=== PATIENT | female | born 1990 | race Caucasian/White ===

== ENCOUNTER 2017-02-18 12:07 | Emergency (ER) | payer OTHER ==
--- NOTE | 2017-02-18 13:50 | UC ---
Abdominal Pain Female HPI - HPI Summary HPI Summary: gradual onset R flank pain constant, worse with movement, starting about 4 days ago. Has been vomiting more than normal and feeling sick to her stomach. No known fevers. Thinks she's urinating less than normal. - History of Current Complaint Chief Complaint: UCGU Stated Complaint: PAIN ON SIDE Time Seen by Provider: 02/18/17 13:31 Hx Obtained From: Patient Hx Last Menstrual Period: 02/15/17 ?: No Onset/Duration: Gradual Onset, Lasting Days Timing: Constant Severity Initially: Mild Severity Currently: Moderate Radiates: No Radiates to: Flank Character: Cramping, Dull Aggravating Factor(s): Movement, Deep Breaths Alleviating Factor(s): Position Associated Signs and Symptoms: Positive: Vaginal Bleeding - menses, Nausea, Vomiting. 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 - Surgical History Surgical History: Yes Surgery Procedure, Year, and Place: gastric bypass - Family History Known Family History: Positive: Hypertension - Social History Lives: With Family Alcohol Use: None Substance Use Type: None Smoking Status (MU): Never Smoked Tobacco - Immunization History Most Recent Influenza Vaccination: 06/17/15 Most Recent Tetanus Shot: 06/17/15 Most Recent Pneumonia Vaccination: none Review of Systems Constitutional: Negative Skin: Negative Eyes: Negative ENT: Negative Respiratory: Negative Cardiovascular: Negative Gastrointestinal: Abdominal Pain, Vomiting Genitourinary: Negative Motor: Negative Neurovascular: Negative Musculoskeletal: Negative Neurological: Negative Psychological: Negative All Other Systems Reviewed And Are Negative: Yes Physical Exam Triage Information Reviewed: Yes Appearance: Well-Nourished, Obese Vital Signs: Initial Vital Signs Temp 98 F 02/18/17 12:14 Pulse 85 02/18/17 12:14 Resp 16 02/18/17 12:14 Pulse Ox 100 02/18/17 12:14 Vital Signs Reviewed: Yes Eye Exam: Normal Eyes: Positive: Conjunctiva Clear ENT Exam: Normal ENT: Positive: Normal ENT inspection, Hearing grossly normal, Pharynx normal, TMs normal Dental Exam: Normal Neck exam: Normal Neck: Positive: Supple, Nontender, No Lymphadenopathy Respiratory Exam: Normal Respiratory: Positive: Chest non-tender, Lungs clear, Normal breath sounds, No respiratory distress, No accessory muscle use Cardiovascular Exam: Normal Cardiovascular: Positive: RRR, No Murmur Abdomen Description: Positive: Soft, CVA Tenderness (R) - significant Musculoskeletal Exam: Normal Neurological Exam: Normal Neurological: Positive: Alert, Muscle Tone Normal Psychological Exam: Normal Skin Exam: Normal Abd Pain Female Course/Dx - Differential Dx/Diagnosis Provider Diagnoses: pyelonephritis Discharge - Discharge Plan Condition: Stable Disposition: HOME Prescriptions: Ciprofloxacin HCl [Cipro 500 MG TAB] 500 mg PO BID #14 tab Patient Education Materials: Kidney Infection (ED) Referrals: Ulisses DAWSON,Khang Pack [Primary Care Provider] - 3 Days Additional Instructions: Drink plenty of water. If you have severe or worsening symptoms, please go to the emergency department.
[2017-02-19 14:05] LABS: Hematocrit 39 % (35-47); Hemoglobin 12.2 g/dl (12.0-16.0); Mean Corpuscular HGB Conc 32 g/dl (31-36); Mean Corpuscular Hemoglobin 26 pg (27-31); Mean Corpuscular Volume 83 fL (80-97); Mean Platelet Volume 10 um3 (7.4-10.4); Red Blood Count 4.66 10^6/ul (4.0-5.4); Red Cell Distribution Width 18 % (10.5-15)
[2017-02-19 14:17] LABS: Albumin 3.9 g/dL (3.2-5.2); EGFR African American 86.2 (>60); Globulin 2.9 g/dL (2-4); Potassium 4.2 mmol/L (3.5-5.0); Total Bilirubin 0.4 mg/dL (0.2-1.0); Total Protein 6.8 g/dL (6.4-8.9)
--- NOTE | 2017-02-19 16:22 | ED ---
Progress - Progress Note Progress Note: LABS LOOK GOOD. SEE HOW PATIENT IS DOING. Course/Dx - Diagnoses Provider Diagnoses: Back pain
== END 2017-02-18 14:15 | disposition home or self-care (01) ==
LOC: UCEAST 12:07 → MERGE 12:07 → UCEAST 14:15
DX: N12 Tubulo-interstitial nephritis, not specified as acute or chronic (principal)
CPT/HCPCS: 36415; 80053; 81003; 85025; 87086; 99202; G0463

== ENCOUNTER 2017-10-22 18:24 | Emergency (ER) | payer OTHER ==
[2017-10-22 19:16] VITALS: BP 154/101
[2017-10-22] MEDS ORDERED: Amoxicillin/Clavulanate TAB* 875 MG PO ONE ×2 (20:01)
[2017-10-22] MEDS ORDERED: Amoxicillin/Clavulanate TAB* 875 MG ONE (20:02)
--- NOTE | 2017-10-22 20:08 | UC ---
Dental HPI - HPI Summary HPI Summary: 27 yo WF c/o tooth pain in right last molar - partially and broken off with cavity worsening pain that radiated to right spiritism x last few days - History of Current Complaint Chief Complaint: UCDentalProblem Stated Complaint: TOOTH PAIN Time Seen by Provider: 10/22/17 19:51 Hx Obtained From: Patient Hx Last Menstrual Period: 08/27/17 ?: Yes Onset/Duration: Sudden Onset, Lasting Days Pain Intensity: 8 - Allergies/Home Medications Allergies/Adverse Reactions: Allergies Allergy/AdvReac Type Severity Reaction Status Date / Time fluoxetine [From Prozac] Allergy See Comment Verified 10/22/17 19:07 Milk Containing Products Allergy Vomiting Verified 10/22/17 19:08 Home Medications: Home Medications Venlafaxine ER (NF) [Effexor ER (NF)] 150 mg PO DAILY 10/22/17 [History Confirmed 10/22/17] cloNIDine TAB* [Catapres 0.1 MG TAB*] 0.1 mg PO BID 10/22/17 [History Confirmed 10/22/17] PMH/Surg Hx/FS Hx/Imm Hx - Additional Past Medical History Additional PMH: dental caries - Surgical History Surgical History: Yes Surgery Procedure, Year, and Place: gastric bypass 2012 - Family History Known Family History: Positive: Hypertension - Social History Alcohol Use: None Substance Use Type: None Smoking Status (MU): Never Smoked Tobacco - Immunization History Most Recent Influenza Vaccination: 06/17/15 Most Recent Tetanus Shot: 06/17/15 Most Recent Pneumonia Vaccination: none Review of Systems Constitutional: Negative Skin: Negative Eyes: Negative ENT: Dental Pain Respiratory: Negative Cardiovascular: Negative Gastrointestinal: Negative Genitourinary: Negative Motor: Negative Neurovascular: Negative Musculoskeletal: Negative Neurological: Negative Psychological: Negative All Other Systems Reviewed And Are Negative: Yes Physical Exam Triage Information Reviewed: Yes Appearance: Well-Appearing, Obese Vital Signs: Initial Vital Signs Temp 36.2 C 10/22/17 19:10 Pulse 93 10/22/17 19:10 Resp 18 10/22/17 19:10 BP 154/101 10/22/17 19:10 Pulse Ox 97 10/22/17 19:10 Eye Exam: Normal ENT Exam: Normal Dental: Positive: Gross Decay/Caries @ - tooth #1partially broken with deep caries,, Dental Fracture @, Other: - moderately poor dentition Neck exam: Normal Neck: Positive: 1 Respiratory Exam: Normal Cardiovascular Exam: Normal Abdominal Exam: Normal Musculoskeletal Exam: Normal Neurological Exam: Normal Psychological Exam: Normal Skin Exam: Normal Dental Complaint Course/Dx - Differential Dx/Diagnosis Differential Diagnosis/Dx: Dental Abscess, Dental Caries, Fractured Tooth Provider Diagnoses: Dental caries. Dental abscess Discharge - Discharge Plan Condition: Stable Disposition: HOME Prescriptions: Amoxicillin/Clavulanate TAB* [Augmentin TAB 875*] 875 mg PO BID 10 Days #20 tab Patient Education Materials: Dental Abscess (ED), Toothache (ED) Referrals: No Primary Care Phys,NOPCP [Primary Care Provider] - Additional Instructions: please follow up with dentist PARVEEN
== END 2017-10-22 20:09 | disposition home or self-care (01) ==
LOC: UCEAST 18:24
DX: K04.7 Periapical abscess without sinus (principal); K02.9 Dental caries, unspecified; Z88.8 Allergy status to other drugs, medicaments and biological substances
CPT/HCPCS: 99212; A9270-GY; G0463

== ENCOUNTER 2018-06-15 13:35 | Inpatient (IN) | payer OTHER ==
[2018-06-15] MEDS ORDERED: Ondansetron INJ* 2 MG/ML VIAL IV ONE (14:06)
[2018-06-15] MEDS ORDERED: NS 0.9% 1000 ML* 1,000 ML IV ONE (14:11)
--- NOTE | 2018-06-15 14:40 | RAD ---
HISTORY: chest pain COMPARISONS: None VIEWS: 4: Frontal dual-energy and lateral views of the chest. FINDINGS: CARDIOMEDIASTINAL SILHOUETTE: The cardiomediastinal silhouette is normal. JOSEF: The josef are normal. PLEURA: The costophrenic angles are sharp. No pleural abnormalities are noted. LUNG PARENCHYMA: The lungs are clear. ABDOMEN: The upper abdomen is clear. There is no subphrenic gas. BONES AND SOFT TISSUES: No bone or soft tissue abnormalities are noted. OTHER: None. IMPRESSION: NO ACTIVE CARDIOPULMONARY DISEASE.
--- NOTE | 2018-06-15 15:02 | RAD ---
HISTORY: RUQ pain COMPARISONS: None TECHNIQUE: Multiple transverse and longitudinal ultrasound images were obtained of the right upper quadrant of the abdomen using grayscale and color Doppler imaging. FINDINGS: LIVER: Liver is homogeneously enlarged measuring 20.4 cm in long axis without focal hepatic parenchymal mass.. BILIARY TREE: There is no intrahepatic or extrahepatic biliary dilatation. The common duct measures 0.5 cm. GALLBLADDER: The gallbladder is distended. Multiple shadowing echogenic foci consistent with gallstones are noted. There is mild gallbladder wall thickening measuring up to 0.5 cm. There is a positive sonographic Humphrey sign. There is no pericholecystic fluid. PANCREAS: The head of the pancreas is unremarkable. The tail of the pancreas is not well visualized secondary to overlying bowel gas. RIGHT KIDNEY: The right kidney is normal in shape, size, contour, and echogenicity. There is no hydronephrosis or nephrolithiasis. The right kidney measures 13.2 x 3.9 x 6.3 cm. AORTA AND IVC: The aorta and IVC are unremarkable. FLUID: There are no pleural effusions. There is no free fluid within the hepatorenal recess. OTHER FINDINGS: None. IMPRESSION: 1. CHOLELITHIASIS WITH GALLBLADDER WALL THICKENING AND A POSITIVE SONOGRAPHIC HUMPHREY'S SIGN CONCERNING FOR ACUTE CHOLECYSTITIS. 2. HEPATOMEGALY.
[2018-06-15 15:12] LABS: ABS Basophils 0.1 10^3/ul (0-0.2); ABS Eosinophils 0 10^3/ul (0-0.6); ABS Lymphocytes 1.1 10^3/ul (1.0-4.8); ABS Monocytes 0.6 10^3/ul (0-0.8); ABS Neutrophils 11.5 10^3/ul (1.5-7.7); ABS Nucleated RBC 0 10^3/ul; Eosinophil % 0.1 % (0-6); Hematocrit 40 % (35-47); Hemoglobin 13.1 g/dl (12.0-16.0); Mean Corpuscular HGB Conc 33 g/dl (31-36); Mean Corpuscular Hemoglobin 27 pg (27-31); Mean Corpuscular Volume 82 fL (80-97); Mean Platelet Volume 9.2 fL (7.4-10.4); Nucleated Red Blood Cells % 0.2; Platelet Count 353 10^3/ul (150-450); Red Blood Count 4.87 10^6/ul (4.00-5.40); Red Cell Distribution Width 16 % (10.5-15); White Blood Count 13.3 10^3/ul (3.5-10.8)
[2018-06-15 15:19] LABS: INR 1.14 (0.77-1.02)
[2018-06-15 15:35] LABS: EGFR Non-African American 81.3 (>60)
[2018-06-15] MEDS ORDERED: Morphine VIAL* 4 MG/ML VIAL (1 ml vial) IV ONE ×2 (15:55→16:45)
--- NOTE | 2018-06-15 15:57 | ED ---
HPI Chest Pain - HPI Summary HPI Summary: Patient is a 27 y/o F w/ c/o dizziness, shaking, RUQ abdominal pain, abdominal bloating, and chest pain. Chest pain is midsternal, constant. Heart skipping and SOB is noted as well, states she cannot get a breath. Deep breaths produce chest pain and lower right back pain. Patient also notes head pressure and feeling near syncopal. She reports Sx except for chest pain onset three days ago. Chest pain onset today. Nausea and vomiting is endorse as well, patient reports she has dry-heaved three times in the past 1.5 hours. Patient also notes that her legs buckle when she stands. Patient reports that she had a similar episode of Sx a month ago during her period. She notes that she is currently on her period as well. Current episode is reported to have been worse than previous episode. In room, she rates pain 89/10. Patient took two tablets of regular strength Tylenol a couple of hours ago. She also takes clonidine for high BP. Patient also notes her periods have been heavier, darker with more clots. Cramping is noted as well. PMHx, 2013 of gastric bypass done at [place], patient states she was also diagnosed with renal failure. Hx of asthma when younger, patient states she is not experiencing wheezing, some rhinorrhea but no cough, no fever, no sore throat. Patient multivitamin, reports chronic anemia. PMHx of GI bleed/GI ulcers is denied. FMHx of heart disease, multiple cancers, and cholecystectomy is noted. , - History of Current Complaint Chief Complaint: EDChestWallPain Time Seen by Provider: 06/15/18 13:50 Hx Last Menstrual Period: 08/27/17 Pain Intensity: 8 - Allergy/Home Medications Allergies/Adverse Reactions: Allergies Allergy/AdvReac Type Severity Reaction Status Date / Time fluoxetine [From Prozac] Allergy See Comment Verified 06/15/18 13:39 Milk Containing Products Allergy Vomiting Verified 06/15/18 13:39 Home Medications: Home Medications Labetalol TAB* [Trandate TAB*] 100 mg PO DAILY 06/15/18 [History Confirmed 06/15] Multivitamins/Minerals TAB* [Theragran/minerals TAB*] 1 tab PO DAILY 06/15/18 [ History Confirmed 06/15/18] Venlafaxine EXT RELEASE CAP* [Effexor Xr CAP*] 150 mg PO DAILY 06/15/18 [ History Confirmed 06/15/18] Zolpidem TAB* [Ambien TAB*] 10 mg PO BEDTIME PRN 06/15/18 [History Confirmed 10/01] hydrOXYzine HCL TAB* [Atarax 10 MG TAB*] 10 mg PO TID PRN 06/15/18 [History Confirmed 06/15/18] oxyCODONE/Acetamin 5/325 MG* [Percocet 5/325 TAB*] 1 tab PO BID PRN MDD 2 tabs 06/15/18 [History Confirmed 06/15/18] tiZANidine TAB* [Zanaflex TAB*] 6 mg PO Q6HR PRN 06/15/18 [History Confirmed 10/01] PMH/Surg Hx/FS Hx/Imm Hx Previously Healthy: No Endocrine/Hematology History: Denies: Hx Diabetes Cardiovascular History: Reports: Hx Hypertension Denies: Hx Pacemaker/ICD Respiratory History: Reports: Hx Asthma GI History: Reports: Other GI Disorders - morbid obesity s/p gastric bypass surgery History: Denies: Hx Renal Disease Sensory History: Denies: Hx Hearing Aid Psychiatric History: Denies: Hx Panic Disorder - Cancer History Cancer Type, Location and Year: pseudotumor - Surgical History Surgery Procedure, Year, and Place: gastric bypass 2012, [place] Infectious Disease History: No Infectious Disease History: Denies: Hx Clostridium Difficile, Hx Hepatitis, Hx Human Immunodeficiency Virus (HIV), Hx of Known/Suspected MRSA, Hx Shingles, Hx Tuberculosis, Hx Known/ Suspected VRE, Hx Known/Suspected VRSA, History Other Infectious Disease, Traveled Outside the [place] in Last 30 Days - Family History Known Family History: Positive: Hypertension - Social History Lives: With Family Alcohol Use: Rare Substance Use Type: Reports: None Smoking Status (MU): Never Smoked Tobacco Review of Systems Constitutional: Negative Positive: Chest Pain Positive: Shortness Of Breath Positive: Abdominal Pain, Vomiting - dry heaves, mucous Positive: no symptoms reported Skin: Negative Neurological: Negative Psychological: Normal All Other Systems Reviewed And Are Negative: Yes Physical Exam - Summary Physical Exam Summary: Appearance: ill-appearing, moderate pain distress, well-nourished, morbidly obese Skin: Warm, color reflects adequate perfusion, dry Head: Normal Head/Face inspection, atraumatic Eyes: Conjunctiva clear ENT: Normal inspection Neck: Supple, no nodes, no JVD Respiratory: shallow respirations, no wheezes, no respiratory distress Cardio: RRR, No murmur, pulses normal, brisk capillary refill Abdomen: Soft, tenderness at RUQ, positive Humphrey's sign, non-distended, no masses appreciated, no rebound Bowel sounds: Present Musculoskeletal: Strength Intact/ROM intact, no calf tenderness, no edema. Psychological: Normal Neuro: Alert, muscle tone normal, no focal deficit Triage Information Reviewed: Yes Vital Signs On Initial Exam: Initial Vitals Temp Pulse Resp BP Pulse Ox 96.2 F 92 20 136/97 100 06/15/18 13:37 06/15/18 13:37 06/15/18 13:37 06/15/18 13:37 06/15/18 13:37 Vital Signs Reviewed: Yes Diagnostics - Vital Signs Vital Signs Temp Pulse Resp BP Pulse Ox 06/15/18 15:06 23 117/84 06/15/18 15:04 88 19 100 06/15/18 13:37 96.2 F 92 20 136/97 100 - Laboratory Lab Results: Lab Results 06/15/18 06/15/18 06/15/18 Range/Units 15:03 15:03 15:04 WBC 13.3 H (3.5-10.8) 10^3/ul RBC 4.87 (4.00-5.40) 10^6/ul Hgb 13.1 (12.0-16.0) g/dl Hct 40 (35-47) % MCV 82 (80-97) fL MCH 27 (27-31) pg MCHC 33 (31-36) g/dl RDW 16 H (10.5-15) % Plt Count 353 (150-450) 10^3/ul MPV 9.2 (7.4-10.4) fL Neut % (Auto) 86.4 H (38-83) % Lymph % (Auto) 8.0 L (25-47) % Bosque % (Auto) 4.9 (0-7) % Eos % (Auto) 0.1 (0-6) % Baso % (Auto) 0.6 (0-2) % Absolute Neuts (auto) 11.5 H (1.5-7.7) 10^3/ul Absolute Lymphs (auto) 1.1 (1.0-4.8) 10^3/ul Absolute Monos (auto) 0.6 (0-0.8) 10^3/ul Absolute Eos (auto) 0 (0-0.6) 10^3/ul Absolute Basos (auto) 0.1 (0-0.2) 10^3/ul Absolute Nucleated RBC 0 10^3/ul Nucleated RBC % 0.2 INR (Anticoag Therapy) 1.14 H (0.77-1.02) Sodium 138 (135-145) mmol/L Potassium 4.0 (3.5-5.0) mmol/L Chloride 104 (101-111) mmol/L Carbon Dioxide 24 (22-32) mmol/L Anion Gap 10 (2-11) mmol/L BUN 10 (6-24) mg/dL Creatinine 0.84 (0.51-0.95) mg/dL Est GFR ( Amer) 98.4 (>60) Est GFR (Non-Af Amer) 81.3 (>60) BUN/Creatinine Ratio 11.9 (8-20) Glucose 101 H (70-100) mg/dL Lactic Acid (0.5-2.0) mmol/L Calcium 9.4 (8.6-10.3) mg/dL Magnesium 2.0 (1.9-2.7) mg/dL Total Bilirubin 0.70 (0.2-1.0) mg/dL AST 15 (13-39) U/L ALT 10 (7-52) U/L Alkaline Phosphatase 89 (34-104) U/L Total Creatine Kinase 49 (10-223) U/L Troponin I 0.00 (<0.04) ng/mL C-Reactive Protein 182.01 H (<8.01) mg/L Total Protein 7.7 (6.4-8.9) g/dL Albumin 4.0 (3.2-5.2) g/dL Globulin 3.7 (2-4) g/dL Albumin/Globulin Ratio 1.1 (1-3) Amylase 13 L (29-103) U/L Lipase < 10 L (11.0-82.0) U/L Beta HCG, Quant < 0.60 mIU/mL 06/15/18 Range/Units 15:04 WBC (3.5-10.8) 10^3/ul RBC (4.00-5.40) 10^6/ul Hgb (12.0-16.0) g/dl Hct (35-47) % MCV (80-97) fL MCH (27-31) pg MCHC (31-36) g/dl RDW (10.5-15) % Plt Count (150-450) 10^3/ul MPV (7.4-10.4) fL Neut % (Auto) (38-83) % Lymph % (Auto) (25-47) % Bosque % (Auto) (0-7) % Eos % (Auto) (0-6) % Baso % (Auto) (0-2) % Absolute Neuts (auto) (1.5-7.7) 10^3/ul Absolute Lymphs (auto) (1.0-4.8) 10^3/ul Absolute Monos (auto) (0-0.8) 10^3/ul Absolute Eos (auto) (0-0.6) 10^3/ul Absolute Basos (auto) (0-0.2) 10^3/ul Absolute Nucleated RBC 10^3/ul Nucleated RBC % INR (Anticoag Therapy) (0.77-1.02) Sodium (135-145) mmol/L Potassium (3.5-5.0) mmol/L Chloride (101-111) mmol/L Carbon Dioxide (22-32) mmol/L Anion Gap (2-11) mmol/L BUN (6-24) mg/dL Creatinine (0.51-0.95) mg/dL Est GFR ( Amer) (>60) Est GFR (Non-Af Amer) (>60) BUN/Creatinine Ratio (8-20) Glucose (70-100) mg/dL Lactic Acid 0.9 (0.5-2.0) mmol/L Calcium (8.6-10.3) mg/dL Magnesium (1.9-2.7) mg/dL Total Bilirubin (0.2-1.0) mg/dL AST (13-39) U/L ALT (7-52) U/L Alkaline Phosphatase (34-104) U/L Total Creatine Kinase (10-223) U/L Troponin I (<0.04) ng/mL C-Reactive Protein (<8.01) mg/L Total Protein (6.4-8.9) g/dL Albumin (3.2-5.2) g/dL Globulin (2-4) g/dL Albumin/Globulin Ratio (1-3) Amylase (29-103) U/L Lipase (11.0-82.0) U/L Beta HCG, Quant mIU/mL Result Diagrams: 06/15/18 15:04 06/15/18 15:03 Lab Statement: Any lab studies that have been ordered have been reviewed, and results considered in the medical decision making process. - Additional Comments Diagnostic Additional Comments: gallbladder US read by radiologist, reviewed by Dr. Matute: cholelithiasis, gallbladder wall thickening, positive Humphrey's sign, hepatomegaly. Re-Evaluation - Re-Evaluation First Eval Re-Evaluation Time: 15:15 Change: Improved Comment: pain is improved. Advised of US results. and child with pt. Pt advised that Dr. Christianson will consult and that he is currently in the OR, and will be with pt PARVEEN. Second Eval Re-Evaluation Time: 16:45 Change: Worse Comment: pain is returning. No vomiting in ED. Pt states her gastric bypass surgery was with Dr. Kunz at [place] in 2012. Chest Pain Course/Dx - Course Course Of Treatment: 27 yo morbidly obese F s/p gastric bypass [address] Kunz, c/o severe RUQ pain, has cholelithiasis, gallbladder wall thickening and positive Humphrey's sign,(also hepatomegaly), elevated wbc count and CRP, not febrile, does not meet sepsis criteria, received morphine 4mg IV x 2 and zofran 4mg IV and zosyn 3.375mg IV in the ED, and is pending evaluation by Dr. Christianson at time of sign out to Dr. Terrazas at 1700 06/15/18. Pt's urine has wbc's and rbc's and is sent for culture. Pt had also complained of chest pain and shortness of breath with normal EKG, CXR and blood work regarding chest pain and shortness of breath, and the chest pain and shortness of breath have resolved in the ED. - Diagnoses Provider Diagnoses: Acute cholecystitis, Hx of gastric bypass, Chest pain, Hepatomegaly - Provider Notifications Discussed Care Of Patient With: David Christianson - Dr. Christianson is in the OR, message about pt left with Dharmesh in OR. Dr. Christianson will consult. Time Discussed With Above Provider: 15:26 - 16:50 Dr. Christianson will come to ED to eval pt. Discharge - Sign-Out/Discharge Documenting (check all that apply): Sign-Out Patient Signing out patient TO: David Terrazas - 1700, pending consult with Dr. Christianson - Discharge Plan Referrals: No Primary Care Phys,NOPCP [Primary Care Provider] - - Attestation Statements Document Initiated by Scribe: Yes Documenting Scribe: Delvis Brown Provider For Whom Jian is Documenting (Include Credential): Radha Matute MD Scribe Attestation: Delvis Mae, scribed for Radha Matute MD on 06/15/18 at 1713. Scribe Documentation Reviewed: Yes Provider Attestation: The documentation as recorded by the Delvis lowery accurately reflects the service I personally performed and the decisions made by me, Radha Matute MD
[2018-06-15] MEDS ORDERED: Piperacillin/Tazobac ADVAN(*) 3.375 GM in NS 0.9% 100 ML* 100 ML IVPB ONE (16:12)
[2018-06-15] MEDS ORDERED: Piperacillin/Tazobac (*) 3.375 GM BAG ONE (16:17)
[2018-06-15 16:31] LABS: Urine Appearance Clear; Urine Blood 2+ (Negative); Urine Color Yellow; Urine Ketones Trace (Negative); Urine Protein Negative (Negative); Urine Red Blood Cell 1+(3-5/hpf) (Absent); Urine Urobilinogen Positive (Negative); Urine White Blood Cell Trace(0-5/hpf) (Absent)
--- NOTE | 2018-06-15 17:48 | ED ---
Progress - Progress Note Progress Note: Patient was received as a sign out from Dr. Matute to Dr. Terrazas pending Dr. Christianson consult. 1735 - Dr. Christianson is in ED, patient's case was discussed, Dr. Christianson accepts patient for admission. Course/Dx - Course Course Of Treatment: Patient is status post gastric bypass years ago and presents with abdominal discomfort. Elevated WBC and ultrasound consistent with cholecystitis. IV antibiotics were given. Surgery saw the patient in the ER and plans to admit with upcoming surgical plan. - Diagnoses Provider Diagnoses: Acute cholecystitis - Provider Notifications Discussed Care Of Patient With: David Christianson Time Discussed With Above Provider: 17:35 Instructed by Provider To: Other - 1735 - Dr. Christianson is in ED, patient's case was discussed, Dr. Christianson accepts patient for admission. Discharge - Sign-Out/Discharge Documenting (check all that apply): Patient Departure - admit - Discharge Plan Condition: Good Disposition: ADMITTED TO [facility] Referrals: No Primary Care Phys,NOPCP [Primary Care Provider] - - Billing Disposition and Condition Condition: GOOD Disposition: Admitted to [facility] - Attestation Statements Document Initiated by Scribe: Yes Documenting Scribe: Delvis Brown Provider For Whom Scribe is Documenting (Include Credential): David Terrazas MD Scribe Attestation: Delvis Mae scribed for David Terrazas MD on 06/15/18 at 1903. Scribe Documentation Reviewed: Yes Provider Attestation: The documentation as recorded by the Delvis lowery accurately reflects the service I personally performed and the decisions made by me, David Terrazas MD
[2018-06-15] MEDS: Ketorolac INJ* 30 MG/ML 1 ML VIAL IV PRN (19:09)
[2018-06-15] MEDS: HYDROmorphone INJ1* 1 MG/ML SYRINGE IV PRN ×2 (20:10→21:58)
[2018-06-15] MEDS: Piperacillin/Tazobactam VIAL*) 3.375 GM in NS 0.9% 100 ML* 100 ML IVPB SCH (20:25)
[2018-06-15] MEDS: NS 0.9% 1000 ML* 1,000 ML IV SCH (20:25)
[2018-06-15] MEDS: cloNIDine TAB* 0.1 MG PO SCH (20:33)
[2018-06-15] MEDS: Zolpidem TAB* 10 MG PO PRN (21:58)
--- NOTE | 2018-06-15 23:20 | HP ---
CC: David Christianson MD HISTORY AND PHYSICAL: DATE OF ADMISSION: 06/15/18 CHIEF COMPLAINT: Abdominal pain. HISTORY OF PRESENT ILLNESS: Ms. Malin is a 27-year-old female, who has had right upper quadrant pain, bloating, feels like it affects her breathing, feels like her heart is skipping, cannot get a deep breath with the pain. She reports 3 days' history of the symptoms, but worse today. She has had more mild attacks over the last month or two, but nothing like this. PAST MEDICAL HISTORY: Significant for Rodolfo-en-Y gastric bypass done at [facility] about 5 years ago. She did have some renal problems after the surgery , but recovered from that. She has not had an accident, injury, or trauma. MEDICATIONS: Include: 1. Clonidine 0.1 mg b.i.d. 2. Labetalol 100 mg p.o. daily. 3. Ambien 10 mg p.o. h.s. p.r.n. 4. Zanaflex 6 mg q.6 p.r.n. 5. Atarax 10 mg p.o. t.i.d. p.r.n. 6. Effexor 150 mg p.o. daily. 7. Multivitamin. 8. Oxycodone p.r.n. ALLERGIES: PROZAC. FAMILY HISTORY: She reveals that other family members have had gallbladder disease. SOCIAL HISTORY: She is a [id number] mom with a 3-year-old girl at home. She recently lost a baby early in . She is not a smoker. Does not admit to any drugs or illicit substances. REVIEW OF SYSTEMS: Significant for hypertension. She has never had chest pain , heart pain, or angina pain. She has never had bronchitis or emphysema. She stated that she had had some pituitary problems, which has what led them to recommend that she have the gastric bypass in the first place. She says that that improved after the surgery. She has not had diabetes. She has not had ulcer disease or prior known gallbladder disease or Crohn's disease. She has had chronic back pain. She has had anxiety and depression. PHYSICAL EXAMINATION GENERAL: She is a well-developed, well-nourished, morbidly obese female. She does not appear acutely ill. HEENT: Head unremarkable. NECK: Unremarkable. LUNGS: Breathing is easy and unlabored with good aeration. HEART: Regular. No abnormal sounds. ABDOMEN: Obese and soft. There are well-healed scars from previous bypass surgery. No evidence of herniation. No evidence of infection. There is tenderness in the right subcostal region with mild Humphrey sign. No rebound tenderness. EXTREMITIES: Well perfused and without edema. SKIN: Warm and well perfused. She is not jaundiced. DIAGNOSTIC STUDIES/LAB DATA: Laboratory studies reveal white blood count elevated at 13,000, hemoglobin normal. Electrolytes show normal bilirubin and LFTs. C- reactive protein is elevated at 182. Lactic acid is normal. Amylase and lipase are normal. HCG is negative. Urinalysis shows no sign of infection. She has had a gallbladder ultrasound showing cholelithiasis with gallbladder wall thickening and a positive sonographic Humphrey sign consistent with acute cholecystitis. There is no pericholecystic fluid or ductal dilatation. IMPRESSION: This 27-year-old morbidly obese female with evidence of cholelithiasis and cholecystitis. PLAN/RECOMMENDATIONS: We will put her on antibiotics and admit her to the hospital and see how she responds to the antibiotics. She may well need surgery at some point. [id number]/[facility] #: [id number] [facility]
[2018-06-16] MEDS: Ketorolac INJ* 30 MG/ML 1 ML VIAL IV PRN ×3 (01:54→23:10)
[2018-06-16] MEDS: HYDROmorphone INJ1* 1 MG/ML SYRINGE IV PRN ×8 (01:54→21:04)
[2018-06-16] MEDS: NS 0.9% 1000 ML* 1,000 ML IV SCH ×2 (04:29→12:38)
[2018-06-16] MEDS: Piperacillin/Tazobactam VIAL*) 3.375 GM in NS 0.9% 100 ML* 100 ML IVPB SCH ×3 (04:30→21:03)
[2018-06-16 06:24] LABS: ABS Basophils 0.1 10^3/ul (0-0.2); ABS Eosinophils 0.1 10^3/ul (0-0.6); ABS Lymphocytes 1.8 10^3/ul (1.0-4.8); ABS Monocytes 0.5 10^3/ul (0-0.8); ABS Neutrophils 5.2 10^3/ul (1.5-7.7); ABS Nucleated RBC 0 10^3/ul; Eosinophil % 0.7 % (0-6); Hematocrit 35 % (35-47); Hemoglobin 11.6 g/dl (12.0-16.0); Lymphocyte % 23.4 % (25-47); Mean Corpuscular HGB Conc 33 g/dl (31-36); Mean Corpuscular Hemoglobin 27 pg (27-31); Mean Corpuscular Volume 83 fL (80-97); Mean Platelet Volume 9.1 fL (7.4-10.4); Nucleated Red Blood Cells % 0.1; Platelet Count 302 10^3/ul (150-450); Red Blood Count 4.28 10^6/ul (4.00-5.40); Red Cell Distribution Width 16 % (10.5-15); White Blood Count 7.6 10^3/ul (3.5-10.8)
[2018-06-16 06:40] LABS: EGFR Non-African American 83.6 (>60)
--- NOTE | 2018-06-16 07:36 | PN ---
Progress Note - Progress Note Date of Service: 06/16/18 Note: Cholecystitis Afeb, VS noted Voiding well Still c/o a lot of pain Abd obese soft quite tender RUQ, +Humphrey's sign WBC normalized, LFT's normal Impr: Cholecystitis Responding to abx, but still a lot of pain Will plan Lap Cholecystectomy. She understands risks, etc., agrees to proceed.
[2018-06-16] MEDS ORDERED: Succinylcholine* 20 MG/ML 10 ML VIAL ONE (08:19)
[2018-06-16] MEDS ORDERED: Propofol* 10 MG/ML 20 ML BTL IV PUSH ONE (08:19)
[2018-06-16] MEDS ORDERED: Lidocaine 2% PF * 5 ML VIAL ONE (08:19)
[2018-06-16] MEDS ORDERED: Midazolam* 1 MG/ML 5 ML VIAL (5 MG) ONE (08:20)
[2018-06-16] MEDS ORDERED: fentaNYL* 50 MCG/ML 5 ML VIAL (250 MCG VIAL) ONE (08:21)
[2018-06-16] MEDS: Labetalol TAB* 100 MG PO SCH (08:27)
[2018-06-16] MEDS ORDERED: Naloxone* 0.4 MG/ML 1 ML VIAL IV PRN (08:30)
[2018-06-16] MEDS ORDERED: Morphine VIAL* 4 MG/ML VIAL (1 ml vial) IV PRN (08:30)
[2018-06-16] MEDS ORDERED: PROCHLORPERAZINE INJ 5 MG/ML 2 ML VIAL IV PRN (08:30)
[2018-06-16] MEDS ORDERED: oxyCODONE/Acetamin 5/325 MG* TAB PO PRN (08:30)
[2018-06-16] MEDS ORDERED: HYDROcodone/ACETAMIN 5-325 MG* 1 TAB PO PRN (08:30)
[2018-06-16] MEDS ORDERED: Sodium Citrate/Citric Acid* 15 ML UDC ONE (08:34)
[2018-06-16] MEDS ORDERED: Bupivacaine 0.25% W/EPI* 10 ML SDV ONE ×2 (08:59→09:27)
[2018-06-16] MEDS ORDERED: Rocuronium* 10 MG/ML VIAL ONE (09:17)
[2018-06-16] MEDS ORDERED: EPHEDrine (Pressors)* 50 MG/ML VIAL ONE (09:21)
[2018-06-16] MEDS ORDERED: DiMENhydriNATE IV* 50 MG/ML VIAL ONE (09:42)
[2018-06-16] MEDS ORDERED: fentaNYL* 50 MCG/ML 2 ML VIAL (100 MCG VIAL) ONE ×2 (09:48→11:11)
[2018-06-16] MEDS ORDERED: Labetalol IV* 5 MG/ML 20 ML VIAL ONE (09:48)
[2018-06-16] MEDS ORDERED: Ondansetron INJ* 2 MG/ML VIAL ONE (10:04)
[2018-06-16] MEDS ORDERED: Sugammadex * 500 MG/5 ML VIAL IV PUSH ONE (10:16)
--- NOTE | 2018-06-16 10:56 | BRIEFOPN ---
Brief Operative Note - Surgery Procedures: Procedures OPERATIVE REPORT PRE-OP: Acute calculous cholecystitis POST-OP:Same PROCEDURE:Laparoscopic cholecystectomy SURGEON: Kesha Christianson MD ANESTHESIA:Local with General, Dr. Mcgoevrn ASST:Nita Rachel MD IVF:1 liter of crystalloid EBL: 100 cc's SPECIMEN: Gallbladder DRAIN: #10 ROXY in right upper abdominal quadrant WOUND CLASS: 4 COMPLICATIONS: none TO PACU
[2018-06-16] MEDS: fentaNYL* 50 MCG/ML 2 ML VIAL (100 MCG VIAL) IV PRN ×2 (11:13→11:35)
[2018-06-16] MEDS ORDERED: HYDROcodone/ACETAMIN 5-325 MG* 1 TAB ONE (11:49)
[2018-06-16] MEDS: Ondansetron INJ* 2 MG/ML VIAL IV PRN (12:32)
--- NOTE | 2018-06-16 13:05 | OP ---
CC: David Chritsianson MD OPERATIVE REPORT: DATE OF OPERATION: 06/16/18 DATE OF : 89 SURGEON: David Christianson MD COLLET MAKING MACHINE OPERATOR: Constantino Rachel MD ANESTHESIOLOGIST: Romana Mcgovern MD. ANESTHESIA: General anesthetic, local infiltration. PRE-OP DIAGNOSIS: Cholecystitis. POST-OP DIAGNOSIS: Cholecystitis. OPERATIVE PROCEDURE: Laparoscopic cholecystectomy. DESCRIPTION OF PROCEDURE: The patient was supine on the operative table. After adequate general ane sthetic, compression stockings, Marianela Hugger warmer, and intravenous antibiotics, the abdomen was prep ped with antiseptic, draped in a sterile fashion. Local infiltrative anesthesia was administered. R ight upper quadrant Visiport cannula was placed and insufflation was carried out with carbon dioxide. Additional cannulae, 5-mm supraumbilical and right anterior axillary line and 12-mm subxiphoid were placed through small stab wounds under direct vision. Inspection revealed a azucena in the surface of t he liver that was controlled with electrocautery. The gallbladder was acutely inflamed and distended and thick- walled. The omentum was peeled down off it in order to facilitate retraction of the gall bladder. The fundus was entered and the bile was drained. The cystic duct and cystic artery were re adily identified, clipped and divided and the gallbladder was taken off the liver bed using electroca utery. This was quite fibrotic and difficult and time consuming dissection, but ultimately it was ca rried out successfully. The gallbladder was placed in a retrieval bag and taken out through the subx iphoid port, which needed to be expanded quite a bit for this removal. The incision ended up almost 5 cm in length. The operative field was with adequate hemostasis. There appeared to be just a bit o f bile leaking from the raw surface of the liver, so a ROXY drain was placed and brought out through th e lateral stab wound and sutured to the skin using Prolene suture. The epigastric fascia was closed with 0 Vicryl and skin with 5-0 Vicryl followed by Steri-Strips. She tolerated the procedure well, w as awakened, extubated and brought to Recovery. There were no complications. Drain was Mark-Porter drain. Sponge and instrument counts correct. Estimated blood loss was 30 mL. [id number]/[facility] #: [id number]
[2018-06-16] MEDS ORDERED: Metoclopramide IV* 5 MG/ML 2 ML VIAL ONE (14:21)
[2018-06-16] MEDS: Metoclopramide IV* 5 MG/ML 2 ML VIAL IV PRN (14:32)
[2018-06-16] MEDS: Venlafaxine EXT RELEASE CAP* 75 MG PO SCH (16:37)
[2018-06-16] MEDS: cloNIDine TAB* 0.1 MG PO SCH ×2 (16:37→21:09)
[2018-06-16] MEDS: Zolpidem TAB* 10 MG PO PRN (23:17)
[2018-06-17] MEDS: HYDROmorphone INJ1* 1 MG/ML SYRINGE IV PRN ×9 (01:04→22:30)
[2018-06-17] MEDS: NS 0.9% 1000 ML* 1,000 ML IV SCH ×3 (01:04→23:14)
[2018-06-17] MEDS: Piperacillin/Tazobactam VIAL*) 3.375 GM in NS 0.9% 100 ML* 100 ML IVPB SCH ×3 (05:44→20:52)
[2018-06-17 06:25] LABS: ABS Basophils 0.1 10^3/ul (0-0.2); ABS Eosinophils 0 10^3/ul (0-0.6); ABS Lymphocytes 1.5 10^3/ul (1.0-4.8); ABS Monocytes 0.4 10^3/ul (0-0.8); ABS Neutrophils 5.5 10^3/ul (1.5-7.7); ABS Nucleated RBC 0 10^3/ul; Eosinophil % 0.6 % (0-6); Hematocrit 33 % (35-47); Hemoglobin 10.9 g/dl (12.0-16.0); Lymphocyte % 20.4 % (25-47); Mean Corpuscular HGB Conc 33 g/dl (31-36); Mean Corpuscular Hemoglobin 27 pg (27-31); Mean Corpuscular Volume 83 fL (80-97); Mean Platelet Volume 8.9 fL (7.4-10.4); Nucleated Red Blood Cells % 0.1; Platelet Count 286 10^3/ul (150-450); Red Blood Count 3.98 10^6/ul (4.00-5.40); Red Cell Distribution Width 16 % (10.5-15); White Blood Count 7.5 10^3/ul (3.5-10.8)
[2018-06-17 06:44] LABS: EGFR Non-African American 100.4 (>60)
[2018-06-17] MEDS: Venlafaxine EXT RELEASE CAP* 75 MG PO SCH (07:48)
[2018-06-17] MEDS: cloNIDine TAB* 0.1 MG PO SCH ×2 (07:48→19:29)
[2018-06-17] MEDS: Labetalol TAB* 100 MG PO SCH (07:48)
--- NOTE | 2018-06-17 13:48 | PN ---
Progress Note - Progress Note Date of Service: 06/17/18 SOAP: Subjective: Some discomfort last night Took minimal po-nausea but feels better today Pain improved and adequately controlled Objective: Temp Pulse Resp BP Pulse Ox 98.2 F 83 18 131/68 98 06/17/18 11:04 06/17/18 11:04 06/17/18 12:48 06/17/18 11:04 06/17/18 11:04 Intake & Output 06/15/18 06/16/18 06/17/18 06/18/18 07:59 07:59 06:59 06:59 Intake Total 2276 Output Total 530 Balance 1746 Weight Intake: IV Fluids 1098 ABX - PIPERACILLIN Lactated Ringer's NS IVPB 758 ABX - PIPERACILLIN 118 NS 640 Oral 420 Output: ROXY #1 130 Urine 400 PEX: Comfortable Lungs are clear Abd is soft and slightly distended. Incisions clean and dry. Decreased bowel sounds. ROXY in place--seroanguinous drainage, non-bilious Ext without edema Laboratory Results - last 24 hr 06/17/18 06/17/18 06/17/18 06:00 06:00 07:25 WBC 7.5 RBC 3.98 L Hgb 10.9 L Hct 33 L MCV 83 MCH 27 MCHC 33 RDW 16 H Plt Count 286 MPV 8.9 Neut % (Auto) 73.2 Lymph % (Auto) 20.4 L Ingham % (Auto) 4.8 Eos % (Auto) 0.6 Baso % (Auto) 1.0 Absolute Neuts (auto) 5.5 Absolute Lymphs (auto) 1.5 Absolute Monos (auto) 0.4 Absolute Eos (auto) 0 Absolute Basos (auto) 0.1 Absolute Nucleated RBC 0 Nucleated RBC % 0.1 Sodium 138 Potassium TNP 3.7 Chloride 107 Carbon Dioxide 26 Anion Gap 5 BUN 8 Creatinine 0.70 Est GFR ( Amer) 121.5 Est GFR (Non-Af Amer) 100.4 BUN/Creatinine Ratio 11.4 Glucose 96 Calcium 8.2 L Total Bilirubin 0.40 Direct Bilirubin TNP 0.00 L Indirect Bilirubin TNP AST TNP 49 H ALT 26 Alkaline Phosphatase 75 Total Protein 6.1 L Albumin 3.1 L Globulin 3.0 Albumin/Globulin Ratio 1.0 Assessment: S/P lap choly for acute calculous cholecystitis Suspect large ROXY drainage from significant amount of irrigation fluid-appears much less today Nausea-improved Labs noted Plan: IV abx Advance diet as tolerated Increase activity Plan D/C 06/18
[2018-06-17] MEDS: Heparin VIAL(*) 5000 UNITS/ML VIAL (FIVE THOUSAND) SUBCUT SCH ×2 (14:15→21:20)
[2018-06-17 16:55] LABS: INR 1.07 (0.77-1.02)
[2018-06-17] MEDS ORDERED: oxyCODONE/Acetamin 5/325 MG* TAB PO PRN (19:01)
[2018-06-17] MEDS: oxyCODONE/Acetamin 5/325 MG* TAB PO PRN (19:24)
[2018-06-17] MEDS: Ondansetron INJ* 2 MG/ML VIAL IV PRN (19:29)
[2018-06-17] MEDS: Metoclopramide IV* 5 MG/ML 2 ML VIAL IV PRN (23:11)
[2018-06-17] MEDS: Zolpidem TAB* 10 MG PO PRN (23:55)
[2018-06-18] MEDS: oxyCODONE/Acetamin 5/325 MG* TAB PO PRN ×6 (00:17→23:19)
[2018-06-18] MEDS: Heparin VIAL(*) 5000 UNITS/ML VIAL (FIVE THOUSAND) SUBCUT SCH ×3 (05:35→21:07)
[2018-06-18] MEDS: Piperacillin/Tazobactam VIAL*) 3.375 GM in NS 0.9% 100 ML* 100 ML IVPB SCH ×3 (05:36→21:04)
[2018-06-18] MEDS: NS 0.9% 1000 ML* 1,000 ML IV SCH ×2 (07:09→15:02)
[2018-06-18] MEDS: Labetalol TAB* 100 MG PO SCH (09:18)
[2018-06-18] MEDS: cloNIDine TAB* 0.1 MG PO SCH ×2 (09:18→21:06)
[2018-06-18] MEDS: Venlafaxine EXT RELEASE CAP* 75 MG PO SCH (09:18)
--- NOTE | 2018-06-18 14:33 | PN ---
Progress Note - Progress Note Date of Service: 06/18/18 Note: POD#2 s/p lap roberta Afeb, VS ok Voiding, masoud some po's Mild pain ROXY serosang---?trace bili colored?? PO's as masoud Cont abx Condt ROXY
[2018-06-18] MEDS: Zolpidem TAB* 10 MG PO PRN (23:20)
[2018-06-19] MEDS: NS 0.9% 1000 ML* 1,000 ML IV SCH ×2 (00:16→15:57)
[2018-06-19] MEDS: Piperacillin/Tazobactam VIAL*) 3.375 GM in NS 0.9% 100 ML* 100 ML IVPB SCH ×2 (06:09→13:30)
[2018-06-19] MEDS: Heparin VIAL(*) 5000 UNITS/ML VIAL (FIVE THOUSAND) SUBCUT SCH ×2 (06:14→13:30)
[2018-06-19] MEDS: oxyCODONE/Acetamin 5/325 MG* TAB PO PRN ×3 (06:17→15:54)
[2018-06-19] MEDS: cloNIDine TAB* 0.1 MG PO SCH (08:36)
[2018-06-19] MEDS: Labetalol TAB* 100 MG PO SCH (08:36)
[2018-06-19] MEDS: Venlafaxine EXT RELEASE CAP* 75 MG PO SCH (08:36)
--- NOTE | 2018-06-19 14:02 | PN ---
Progress Note - Progress Note Date of Service: 06/19/18 Note: POD#3 s/p lap roberta (acute) Afeb, VS noted masoud po's. no N/V voiding well ROXY moderate, non-bilious Abd obese, soft, sore Still some back pain as pre-op Disch home with ROXY No need for additional abx F/U office 3 days
[2018-06-19 15:46] VITALS: BP 167/95
--- NOTE | 2018-06-19 18:12 | PN ---
Progress Note - Progress Note Date of Service: 06/19/18 Note: S: POD #1.lkjflkdjlkajfafoiagjgafajlkfflkalsajjflkjlj Vital Signs - 8 hr 06/19/18 06/19/18 06/19/18 11:05 11:13 13:22 Temperature 98.0 F Pulse Rate 87 Respiratory 18 16 18 Rate Blood Pressure 157/104 (mmHg) O2 Sat by Pulse 98 Oximetry 06/19/18 06/19/18 15:25 15:54 Temperature 98.0 F Pulse Rate 80 Respiratory 16 18 Rate Blood Pressure 167/95 (mmHg) O2 Sat by Pulse 97 Oximetry
--- NOTE | 2018-06-20 17:56 | DS ---
AMENDED REPORT NOW INCLUDES DESIGNATED COSIGNER DISCHARGE SUMMARY: DATE OF ADMISSION: 06/15/18 DATE OF DISCHARGE: 06/19/18 ATTENDING PHYSICIAN: Dr. David Christianson.* (DICTATED BY PRITESH PAIGE) HOSPITAL COURSE: Please refer to admission history and physical and operative note for details. The patient was admitted with acute cholecystitis and treated initially with antibiotics. Because she was not improving, she was taken to the OR on 06/16/18 at which time she underwent a laparoscopic cholecystectomy with Dr. Christianson. Surgery was difficult and there was some bile spillage as well as possibility of some bile leakage from the liver bed. A ROXY drain was left in place and she was covered with IV Zosyn through the remainder of her hospital stay. As of the morning of discharge, she is feeling better but still having some discomfort particularly in the right upper quadrant and right scapular area with deep inspiration. She is otherwise tolerating diet. PHYSICAL EXAM: She was seen and evaluated by Dr. Christianson. See separate note. She is afebrile and vital signs were stable with the exception of her blood pressure being somewhat elevated. ROXY drain was draining total of 130 mL for the day and appeared to light serosanguinous without any bile tinge. ASSESSMENT: Status post laparoscopic cholecystectomy, improving. PLAN: Home today with ROXY drain in place. Dr. Christianson did not feel that further antibiotics were indicated. She will contact our office for an appointment on 06/22/18 for followup and probable removal of drain. Instructions were reviewed regarding diet, wound care, and activity. A prescription was sent to the outpatient pharmacy at the hospital for Percocet. [facility] Registry checked. PRITESH PAIGE [id number]/[facility] #: [id number] MTDD
== END 2018-06-19 18:30 | disposition home or self-care (01) | DRG 263 ==
LOC: ED 13:35 → SSU 18:46 → OBSVTOIN 06-17 15:00
PROVIDERS: ADMIT Surgery; ATTEND Surgery
PROC: 0FT44ZZ Resection of Gallbladder, Percutaneous Endoscopic Approach (ICD-10-PCS; principal; 2018-06-16 09:43)
DX: K80.00 Calculus of gallbladder with acute cholecystitis without obstruction (principal); Z68.43 Body mass index [BMI] 50.0-59.9, adult; I10 Essential (primary) hypertension; G89.29 Other chronic pain; F41.9 Anxiety disorder, unspecified; F32.9 Major depressive disorder, single episode, unspecified; E66.01 Morbid (severe) obesity due to excess calories; J45.909 Unspecified asthma, uncomplicated; M54.5 Low back pain; D64.9 Anemia, unspecified; Z98.84 Bariatric surgery status; Z82.49 Family history of ischemic heart disease and other diseases of the circulatory system; Z80.9 Family history of malignant neoplasm, unspecified; Z88.8 Allergy status to other drugs, medicaments and biological substances; Z91.011 Allergy to milk products; Z83.79 Family history of other diseases of the digestive system
CPT/HCPCS: 36415; 71046; 76705; 80048; 80053; 80076; 81003; 81015; 82150; 82550; 83605; 83690; 83735; 84484; 84702; 85025; 85610; 85730; 86140; 87086; 88304; 93005; 99285; A9270-GY; G0378; J0330; J1170; J1240; J1644; J1885; J2250; J2270; J2405; J2543; J2704; J2765; J3010

== ENCOUNTER 2019-06-19 18:01 | Emergency (ER) | payer OTHER ==
--- OUTSIDE RECORDS SUMMARY | 2019-06-19 18:36 | XMS REPORT | Summary of Care ---
:1990 Author Organization [facility] Address [address] [place] [address] Care Team Providers Name Role Phone Bella Keating Primary Care Provider Reason for Referral Refer to Department Only (Routine) Status Reason Specialty Diagnoses / Referred By Referred To Procedures Contact Contact Pending Review PAIN CLINIC / Diagnoses Pseudotumor cerebri Other chronic pain [facility] [address] [place] [address] Scheduling Instructions To refer a patient to the Interventional Pain Clinic please call Please have the following ready: -Symptoms of the patient being referred -Recent films if available, NOT REQUIRED! -Known prior treatments Please be aware that we do not do medical management. Reason for Visit Reason Comments Medication Management Encounter Details Date Type Department Care Team Description 05/13/2019 Office Visit Chacho Crane Zuri, Pseudotumor cerebri ( Primary Dx); Practice [facility] Muscle spasm; [address] Other insomnia; [place] [address] [place], [place] Flu vaccine need; [phone] Other chronic pain [phone] Allergies Active Allergy Reactions Severity Noted Date Comments Lac Bovis GI Reaction High 01/14/2015 Fluoxetine MORTGAGE PROCESSING CLERK Reaction 04/21/2014 Suicidal documented as of this encounter (statuses as of 05/13/2019) Medications Medication Sig Dispensed Refills Start End Date Status Date Pediatric Take 1 Tab by 0 Active Uwithtdu-Jptyugxz-H mouth DAILY. (FLINTSTONES COMPLETE PO) Omeprazole 40 MG Take 1 Cap by 30 Cap 5 Active Oral CAPSULE mouth DAILY. 6 DELAYED RELEASE fexofenadine Take 180 mg by 0 Active (EARLE ALLERGY) mouth DAILY. 180 MG Oral Tab albuterol HFA Take 2 Puffs by 0 Active (PROVENTIL,VENTOLIN inhalation FOUR ) 108 (90 BASE) TIMES DAILY. MCG/ACT Inhalation Aero Soln fluticasone-salmete Take 1 INHL by 0 Active rol diskus (ADVAIR inhalation DISKUS) 250-50 TWICE DAILY. MCG/DOSE Inhalation AEROSOL POWDER, BREATH ACTIVATED influenza virus Inject 0.5 mL 1 vial 0 Active vaccine (FLUZONE) within a muscle 8 Intramuscular ONE TIME. SuspensionIndicatio ns: Flu vaccine need venlafaxine Take 1 Cap by 30 Cap 5 Active (EFFEXOR XR) 150 MG mouth DAILY. 8 Oral CAPSULE SR 24 HRIndications: LIDIA (generalized anxiety disorder) labetalol Take 0.5 Tabs 30 Tab 5 Active (NORMODYNE) 100 MG by mouth DAILY. 9 Oral TabIndications: Essential hypertension predniSONE Take 1 Tab by 10 Tab 0 Active (DELTASONE) 10 MG mouth DAILY. 9 Oral TabIndications: Acute pain of right shoulder cloNIDine Take 1 Tab by 60 Tab 5 Active (CATAPRES) 0.2 MG mouth TWICE 9 Oral DAILY. TabIndications: Essential hypertension ergocalciferol Take 1 Cap by 12 Cap 1 Active (DRISDOL, mouth EVERY 7 9 CALCIFEROL, VITAMIN DAYS. D) 17130 units Oral Cap chlorthalidone TAKE ONE TABLET 30 Tab 5 Active (HYGROTON) 25 MG BY MOUTH EVERY 9 Oral DAY TabIndications: Hypertension, unspecified type, Essential hypertension tizanidine Take 1 Tab by 180 Tab 5 Active (ZANAFLEX) 4 MG mouth EVERY SIX 9 Oral HOURS NEEDED TabIndications: (muscle spasm). Muscle spasm, Pseudotumor cerebri zolpidem (AMBIEN) Take 1 Tab by 30 Tab 0 Active 10 MG Oral mouth EVERY 9 TabIndications: BEDTIME Other insomnia NEEDED (stop restoril). Max Daily Amount: 10 mg. tizanidine Take 1 Tab by 120 Tab 5 05/13/20 Discontinued (ZANAFLEX) 4 MG mouth EVERY SIX 9 19 (Reorder) Oral HOURS NEEDED TabIndications: (muscle spasm). Muscle spasm, Pseudotumor cerebri zolpidem (AMBIEN) Take 1 Tab by 10 Tab 0 05/13/20 Discontinued 10 MG Oral mouth EVERY 9 19 (Reorder) TabIndications: BEDTIME Other insomnia NEEDED (stop restoril). Max Daily Amount: 10 mg. NEED APPOINTMENT documented as of this encounter (statuses as of 05/13/2019) Active Problems Problem Noted Date Pituitary adenoma 02/29/2016 Sinus congestion 02/29/2016 Muscle pain 02/29/2016 Muscle weakness 02/29/2016 Memory loss 02/29/2016 Eczema 02/29/2016 Anemia 02/29/2016 H/O seasonal allergies 02/29/2016 History of headache 02/29/2016 Pseudotumor 01/26/2015 Chronic headache 01/26/2015 S/P gastric bypass 01/26/2015 BMI 50.0-59.9, adult 01/26/2015 Depression 04/04/2014 Pituitary apoplexy 10/03/2012 Essential hypertension 10/03/2012 documented as of this encounter (statuses as of 05/13/2019) Resolved Problems Problem Noted Date Resolved Date Supervision of normal first 01/26/2015 06/04/2015 DUB (dysfunctional uterine bleeding) 02/02/2011 01/26/2015 documented as of this encounter (statuses as of 05/13/2019) Immunizations Name Administration Dates Next Due Influenza (IM) Preservative Free 05/13/2019, 04/26/2018, 05/28/2014 Influenza (IM) W/Pres 08/16/2017 Phenergan (12.5 mg) 05/04/2016 TDAP Vaccine 07/05/2012 Toradol (30 mg) 05/04/2016 documented as of this encounter Social History Tobacco Use Types Packs/Day Years Used Date Never Smoker Smokeless Tobacco: Never Used Alcohol Use Drinks/Week oz/Week Comments No 0 Standard drinks or equivalent 0.0 occasionally- not since aware of Sex Assigned at Date Recorded Not on file Job Start Date Occupation Industry Not on file Not on file Not on file Travel History Travel Start Travel End No recent travel history available. documented as of this encounter Last Filed Vital Signs Vital Sign Reading Time Taken Comments Blood Pressure 128/74 05/13/2019 1:22 PM EDT Pulse 104 05/13/2019 1:22 PM EDT Temperature 36.7 05/13/2019 1:22 PM EDT C (98.1 F) Respiratory Rate 18 05/13/2019 1:22 PM EDT Oxygen Saturation 95% 05/13/2019 1:22 PM EDT Inhaled Oxygen Concentration - - Weight 164.2 kg (362 lb) 05/13/2019 1:22 PM EDT Height - - Body Mass Index 60.24 11/22/2016 9:32 AM EDT documented in this encounter Patient Instructions Patient InstructionsBella Keating NP - 05/13/2019 1:10 PM EDTContinue with current medications Refer to Pain Clinic Follow up in 3 months or earlier with any questions or concerns. documented in this encounter Progress Notes Bella Keating NP - 05/13/2019 1:10 PM EDT NAME: Fiona Malin DATE OF : 1990 DATE OF SERVICE: 05/13/2019 Chief Complaint Patient presents with Medication Management HPI: Fiona is a 28 yo female present to office for follow-up with medications. She has history of pseudotumor, she visited neurology on 05/10/19 and was spinal tapped, per patient neurology will start teresa Diomax for fluid retention. She is to follow-up with neurology in 2 weeks. Per patient she has been having vision issues, frequent KHAN and episodes of dizziness-which Neurologyis aware. She denies chest pain or SOB. She denies any changes to sleep or appetite. No changes in her bowel patterns, denies any urinary issues. She takes Zanaflex for chronic pain and wants a refill. She takes Ambien for sleeping aid. She is taking medications as prescribed. She does feel that she is sleeping through the night. No other concerns or issues. She wants flu vaccine. HISTORY: Allergies Allergen Reactions Milk [Lac Bovis] GI Reaction Prozac [Fluoxetine] MORTGAGE PROCESSING CLERK Reaction Suicidal Current Outpatient Medications Medication Sig albuterol HFA (PROVENTIL,VENTOLIN) 108 (90 BASE) MCG/ACT Inhalation Aero Soln Take 2 Puffs byinhalation FOUR TIMES DAILY. chlorthalidone (HYGROTON) 25 MG Oral Tab TAKE ONE TABLET BY MOUTH EVERY DAY cloNIDine (CATAPRES) 0.2 MG Oral Tab Take 1 Tab by mouth TWICE DAILY. ergocalciferol (DRISDOL, CALCIFEROL, VITAMIN D) 49530 units Oral Cap Take 1 Cap by mouth EVERY 7 DAYS. fexofenadine (EARLE ALLERGY) 180 MG Oral Tab Take 180 mg by mouth DAILY. fluticasone-salmeterol diskus (ADVAIR DISKUS) 250-50 MCG/DOSE Inhalation AEROSOL POWDER, BREATH ACTIVATED Take 1 INHL by inhalation TWICE DAILY. influenza virus vaccine (FLUZONE) Intramuscular Suspension Inject 0.5 mL within a muscle ONE TIME. labetalol (NORMODYNE) 100 MG Oral Tab Take 0.5 Tabs by mouth DAILY. Omeprazole 40 MG Oral CAPSULE DELAYED RELEASE Take 1 Cap by mouth DAILY. Pediatric Tawixtra-Eykicstc-Z (FLINTSTONES COMPLETE PO) Take 1 Tab by mouth DAILY. predniSONE (DELTASONE) 10 MG Oral Tab Take 1 Tab by mouth DAILY. tizanidine (ZANAFLEX) 4 MG Oral Tab Take 1 Tab by mouth EVERY SIX HOURS NEEDED (muscle spasm). venlafaxine (EFFEXOR XR) 150 MG Oral CAPSULE SR 24 HR Take 1 Cap by mouth DAILY. zolpidem (AMBIEN) 10 MG Oral Tab Take 1 Tab by mouth EVERY BEDTIME NEEDED (stop restoril).Max Daily Amount: 10 mg. No current facility-administered medications for this visit. Most Recent Immunizations Administered Date(s) Administered Influenza (IM) Preservative Free 04/26/2018 Influenza (IM) W/Pres 08/16/2017 Phenergan (12.5 mg) 05/04/2016 TDAP Vaccine 07/05/2012 Toradol (30 mg) 05/04/2016 Pended Date(s) Pended Influenza (IM) Preservative Free 05/13/2019 Patient Active Problem List Diagnosis Date Noted Pituitary adenoma (HCC) 02/29/2016 Sinus congestion 02/29/2016 Muscle pain 02/29/2016 Muscle weakness 02/29/2016 Memory loss 02/29/2016 Eczema 02/29/2016 Anemia 02/29/2016 H/O seasonal allergies 02/29/2016 History of headache 02/29/2016 Pseudotumor 01/26/2015 Chronic headache 01/26/2015 S/P gastric bypass 01/26/2015 BMI 50.0-59.9, adult (HCC) 01/26/2015 Depression 04/04/2014 Pituitary apoplexy (HCC) 10/03/2012 Essential hypertension 10/03/2012 Past Medical History: Diagnosis Date Asthma Headache(784.0) History of gastric bypass History of hypothyroidism Milk intolerance Morbidly obese (HCC) Pituitary apoplexy (HCC) Pseudotumor cerebri Past Surgical History: Procedure Laterality Date EGD 12/03/2012 Procedure: ENDOSCOPY UPPER GI; Surgeon: Artemio Luna MD; Location: ANCILLARY OR; Laterality: N/A; HIGH GASTRIC BYPASS 05/2013 done at [facility] HYSTEROSCOPY, DILATATION AND CURETTAGE 03/16/2011 Procedure:HYSTEROSCOPY, DILATATION AND CURETTAGE; Surgeon:MILLY AVILA; Location: MAIN OR; Laterality:N/A Social History Tobacco Use Smoking status: Never Smoker Smokeless tobacco: Never Used Substance Use Topics Alcohol use: No Alcohol/week: 0.0 standard drinks Comment: occasionally- not since aware of Family History Problem Relation Age of Onset Thyroid Mother Migraines Mother Hypertension Mother Asthma Mother Migraines Brother Diabetes Maternal Aunt Diabetes Maternal Grandmother Cancer Maternal Grandmother Arthritis Maternal Grandmother Other Diagnosed Disorder Brother Autism Cancer Maternal Aunt Liver Cancer Other Diagnosed Disorder Brother Tourette's Syndrome Bipolar Disorder Brother Other Diagnosed Disorder Brother Hx of Lead Poisoning SUBJECTIVE: Review of Systems - A complete review of systems completed and is negative except what is noted in HPI. OBJECTIVE: Vitals: 05/13/19 1322 BP: 128/74 BP Location: Left arm Patient Position: Sitting Pulse: 104 Resp: 18 Temp: 98.1 F (36.7 C) TempSrc: Tympanic SpO2: 95% Weight: 362 lb (164.2 kg) GENERAL: Well developed, well nourished. Sitting in exam room in no acute distress. SKIN: Warm, dry and intact. HEENT: Atraumatic, normocephalic. Conjunctiva pink, sclera white. PERRLA. Extraocular movements intact. Bilateral ear canals clear, without exudate. TM' s within normal limits, good cone of light. No sinus tenderness. Oral mucosa pink and moist. Dentition good. Tongue midline. Pharynx without redness or exudate. NECK: Supple. Trachea midline. No lymphadenopathy. No thyromegaly. No carotid bruits. LUNGS: Thorax symmetrical with good expansion. Good air exchange throughout all lung moseley. Lungs clear all moseley. No rhonchi, wheezes or crackles audible. CARDIOVASCULAR: Normal heart sounds. S1 and S2 present with no additional sounds. No murmurs, gallops, clicks or rubs. ABDOMEN: Soft, non distended. No tenderness or masses palpable. No hepatosplenomegaly. No CVA tenderness. Bowel sounds +4 all quadrants. EXTREMITIES: Warm and Dry. No clubbing, cyanosis or edema noted. MUSCULOSKELETAL: Normal strength and muscle tone. Full ROM all extremities. No joint deformities. NEUROLOGICAL: Oriented X 3. Cranial nerves II-XII intact. Cooperative, thoughts coherent and goodjudgement noted. Reflexes intact. ASSESSMENT: ICD-9-CM ICD-10-CM 1. Pseudotumor cerebri 348.2 G93.2 tizanidine (ZANAFLEX) 4 MG Oral Tab REFER TO PAIN CLINIC 2. Muscle spasm 728.85 M62.838 tizanidine (ZANAFLEX) 4 MG Oral Tab 3. Other insomnia 780.52 G47.09 zolpidem (AMBIEN) 10 MG Oral Tab 4. Flu vaccine need V04.81 Z23 NM FLU VACCINE PRES FREE 6MOS+ 5. Other chronic pain 338.29 G89.29 REFER TO PAIN CLINIC PLAN: ICD-9-CM ICD-10-CM 1. Pseudotumor cerebri 348.2 G93.2 tizanidine (ZANAFLEX) 4 MG Oral Tab REFER TO PAIN CLINIC 2. Muscle spasm 728.85 M62.838 tizanidine (ZANAFLEX) 4 MG Oral Tab 3. Other insomnia 780.52 G47.09 zolpidem (AMBIEN) 10 MG Oral Tab 4. Flu vaccine need V04.81 Z23 NM FLU VACCINE PRES FREE 6MOS+ 5. Other chronic pain 338.29 G89.29 REFER TO PAIN CLINIC Plan: Patient to keep follow up with Neurology Will refer to Pain Clinic for chronic pain Patient to continue with current medications Flu vaccine given Follow up in 3 months or earlier with any questions or concerns. Patient Instructions Continue with current medications Refer to Pain Clinic Follow up in 3 months or earlier with any questions or concerns. FOLLOW UP: Return in about 4 weeks (around 06/10/2019), or if symptoms worsen or fail to improve. Bella Keating NP [facility] 05/13/2019 14:25 documented in this encounter Plan of Treatment Date Type Specialty Care Team Description 05/20/2019 Ancillary Procedure Radiology Name Type Priority Associated Diagnoses Order Schedule REFER TO PAIN CLINIC Referral Routine Pseudotumor cerebri Expected: 05/13/2019, Other chronic pain Expires: 05/13/2020 Health Maintenance Due Date Last Done Comments PAP SMEAR 01/26/2018 01/26/2015, 07/09/2014 (Postponed) DEPRESSION SCREENING 05/13/2020 05/13/2019, 10/13/2015 INFLUENZA VACCINE Completed 05/13/2019, 04/26/2018, 08/16/2017, Additional history exists HPV IMMUNIZATION SERIES Aged Out No longer eligible based on patient's age to complete this topic MENINGOCOCCAL VACCINE IMM Aged Out No longer eligible based on patient's age to complete this topic PNEUMOCOCCAL 0-64 YRS Aged Out No longer eligible based on patient's age to complete this topic documented as of this encounter Goals Goal Patient Goal Associated Recent Patient-Stated? Author Type Problems Progress Blood Pressure Blood Pressure Essential 128/74 No Lambert, < 140/90 hypertension (05/13/2019 GLENYS Smyth 1:22 PM EDT) Note: Hypertension Care Plan Based on the patient's clinical history and according to JNC 8 guidelines target blood pressure goal is less than 140/90. Based on the patient's last blood pressure of the patient is at above goal. As your provider, it is important that I advise you regarding: your current medications and help you with any challenges you may face taking your medications as directed (ex. instructions, cost, side effects, and interactions). Important lifestyle changes: exercise, weight reduction, diet, dietary sodium reduction and medication compliance your clinical goals and how you can achieve success: weight reduction, exercise plan and diet improvements medication management: adjusted medications as appropriate patient education/self-management tools provided: Current self-management tools adequate To successfully manage my Hypertension I will: monitor my blood pressure daily, understanding that my goal is less than 140/ 90 per my healthcare provider's recommendation. I will schedule an appointment with my provider if consistent abnormal readings greater than 160/100. take medications every day as prescribed by my healthcare provider and if unable to take them I will discuss with my provider. monitor for symptoms of chest pain, chest tightness/pressure, irregular heartbeat, persistent dizziness, radiating arm pain, and neck or jaw pain. If any of these symptoms are noticed I will seek medical attention immediately by calling 911 exercise/walk 30 minutes 5 day(s) per week. If I experience chest pain, chest tightness, or shortness of breath, I will seek medical attention immediately. follow a diet rich in fruits, vegetables, and low-fat dairy products with reduced content of saturated & total fat. I will reduce my sodium intake daily. An example is the DASH diet. To obtain more information please refer to the DASH Eating Plan listed in Educational Resources. record my blood pressure results. Informed [employer] is safe and secure way for you to do this in your medical record online. try to obtain an ideal body weight. My recent weight was Weight: 303 lb ( 137.44 kg). My weight loss goal for my next office visit is 5%. limit alcohol consumption. For men two drinks per day and women one drink per day. if currently smoking, will discuss how to quit smoking with my healthcare provider and work towards quitting. Educational Resources: National Heart, Lung, & Blood [place] http://nhlbi.nih.gov/hbp/index.html The DASH Diet Eating Plan http://www.nhlbi.nih.gov/health/health-topics/ topics/dash/ Academy of Nutrition & DIetetics http://eatright.org National Smoking Cessation Site http://smokefree.gov Blood Pressure < Blood Pressure 128/74 (05/13/2019 1:22 Rosita Arriola, BREWING TECHNICIAN 140/90 PM EDT) Note: This is an individualized treatment (blood pressure) goal for Fiona Still: Displayed above (on the left) is your goal for blood pressure control. Your most recent blood pressure is also shown above, on the right. You should try to achieve blood pressures that are lower than your goal listed above (on the left). Depression screen Depression 14 (10/13/2015 3:00 PM Rosita Arriola FNP (PHQ-9) total score < 5 EST) Note: This is an individualized treatment (depression) goal for Fiona Still: Displayed above is your goal for a depression screening (PHQ-9) score that would indicate good control of your depression. Weight loss vs. 18 mo Lifestyle 0 (05/13/2019 1:22 PM EDT) Rosita Arriola FNP max (lbs) >= 10 Note: This is an individualized lifestyle goal for Fiona Still: Your body mass index (BMI) is more than 30. You should lose weight. A reasonable starting goal is to lose 10 pounds. Displayed above is how many pounds you have lost thus far towards your 10 pound weight loss goal. Keep a regular sleep schedule Lifestyle Rosita Arriola FNP Note: This is an individualized lifestyle goal for Fiona Still: Please maintain a regular sleep schedule. This may help with some symptoms of depression. Take all prescribed medications as Self-management Rosita Arriola FNP directed Note: This is an individualized self-management goal for Fiona Still: Please take all prescribed medications as directed. 1. Do not skip doses. If you cannot afford your medications, talk with your doctor. 2. Use a pill reminder system such as a pill box if needed. Your pharmacist can help you with this. 3. Contact your Pharmacy 5 days before your medication runs out. If you cannot take your medications for any reasons, talk with your doctor. 4. Please bring all of your medication bottles and inhalers (or a list of all your medications/inhalers) with you to every visit. Potential barriers to meeting all of your care plan goals will continue to be addressed on an ongoing basis. documented as of this encounter Results Not on filedocumented in this encounter Visit Diagnoses Diagnosis Pseudotumor cerebri - Primary Benign intracranial hypertension Muscle spasm Spasm of muscle Other insomnia Flu vaccine need Need for prophylactic vaccination and inoculation against influenza Other chronic pain documented in this encounter Guarantor Name Account Type Relation to Date of Phone Billing Patient Address Pretty Malin Personal/Family 1990 [phone] [address] [phone] [place], [place] (Work) [id number] documented as of this encounter
--- OUTSIDE RECORDS SUMMARY | 2019-06-19 18:36 | XMS REPORT | Continuity of Care Document ---
:1990 External Reference #:[id number] Author Name Lobo Crowell N.P. 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 Onset: 03/05/2019 Benign intracranial hypertension Landon López M.D. Onset: 03/05/2019 Social History Type Date Description Comments Sex Unknown ETOH Use Denies alcohol use Tobacco Use Start: Unknown Patient has never smoked Recreational Drug Use Denies Drug Use Smoking Status Reviewed: 05/10/19 Patient has never smoked Exercise Type/Frequency Does not exercise Allergies, Adverse Reactions, Alerts Active Allergies Reaction Severity Comments Date Prozac 06/21/2018 Dilaudid 06/22/2018 Medications Active Medications SIG Qnty Indications Ordering Date Provider Acetazolamide 1 by mouth twice 120tabs G93.2 Lobo Crowell, 05/10/2019 250mg a day for a week N.P. Tablets than 1 in am and 2 in pm for a week than 2 in am 2 in pm Clonidine HCL 1 by mouth twice Unknown 0.1mg a day Tablets Ambien take 1/2 to 1 Unknown 10mg Tablets tablet by mouth nightly at bedime as needed maximum daily dose of 1 per day Effexor XR 1 by mouth every Unknown 150mg Caps ER day 24HR Multivitamin Adults daily Unknown Tablets Tizanidine HCL 1 capsule every Unknown 6mg night at bedtime Capsules for muscle spasms as needed Vitamin D once a week Unknown (Ergocalciferol) [id number] Capsules Ferrous Sulfate 3 tabs daily for Unknown 325(65Fe) 1 week then 2 mg Tablets for 1 week then 1 tab daily Immunizations Description No Information Available Vital Signs Date Vital Result Comment 05/10/2019 2:33pm Height 65 inches 5'5" Weight 254.38 lb Heart Rate 78 /min BP Systolic Sitting 130 mmHg BP Diastolic Sitting 86 mmHg Respiratory Rate 18 /min BMI (Body Mass Index) 42.3 kg/m2 03/05/2019 11:16am Height 65 inches 5'5" Weight 369.25 lb Heart Rate 96 /min BP Systolic 160 mmHg BP Diastolic 110 mmHg BMI (Body Mass Index) 61.4 kg/m2 Results Test Date Facility Test Result H/L Range Note Laboratory test 03/25/2019 [facility] CSF Angiotension <pending > finding [address] [place] [address] [phone] Laboratory test 03/25/2019 [facility] CSF Immunoglobulin < pending> finding [address] ([place]gg) [place] [address] [phone] Lyme Disease CSF <pending> Oligoclonal Bands <pending> CSF Studies 03/25/2019 [facility] CSF Protein <pending> [address] [place] [address] [phone] CSF Glucose <pending> Oligoclonal Bands <pending> CSF Immunoglobulin G (Igg) <pending> CSF Angiotension Conv Enz <pending> Viral Culture Non Respiratory <pending> Basic Metabolic 03/25/2019 [facility] Sodium 139 mmol/L Normal 135-145 Panel [address] [place] [address] [phone] Potassium 4.4 mmol/L Normal 3.5-5.0 Chloride 102 mmol/L Normal 101-111 Co2 Carbon Dioxide 27 mmol/L Normal 22-32 Anion Gap 10 mmol/L Normal 2-11 Glucose 84 mg/dL Normal 70-100 Blood Urea Nitrogen 9 mg/dL Normal 6-24 Creatinine 0.89 mg/dL Normal 0.51-0.95 BUN/Creatinine Ratio 10.1 Normal 8-20 Calcium 9.5 mg/dL Normal 8.6-10.3 Egfr Non- 75.5 >60 Egfr 91.4 >60 1 Protein 03/25/2019 [facility] Total 6.8 g/dL 6.3 - Electrophoresis [address] Protein(Pep) 7.9 [place] [address] [phone] Albumin 3.1 g/dL Abnormal 3.4-4.7 Alpha-1 Globulin 0.3 g/dL 0.1-0.3 Alpha-2 Globulin 1.1 g/dL Abnormal 0.6-1.0 Beta Globulin 1.2 g/dL 0.7-1.2 Gamma Globulin 1.2 g/dL 0.6-1.6 Albumin/Globulin Ratio 0.83 Impression See Comment 2 1 Because ethnic data is not always readily available, this report includes an eGFR for both -Americans and non- Americans. The National Kidney Disease Education Program (NKDEP) does not endorse the use of the MDRD equation for patients that are not between the ages of 18 and 70, are , have extremes of body size, muscle mass, or nutritional status, or are non- or non-. According to the National Kidney Foundation, irrespective of diagnosis, the stage of the disease is based on the level of kidney function: Stage Description GFR(mL/min/1.73 m(2)) 1 Kidney damage with normal or decreased GFR 90 2 Kidney damage with mild decrease in GFR 60-89 3 Moderate decrease in GFR 30-59 4 Severe decrease in GFR 15-29 5 Kidney failure <15 (or dialysis) 2 RESULT: No apparent monoclonal protein on serum electrophoresis. Test Performed by: [facility] [address] [place] [address] Procedures Description No Information Available Medical Devices Description No Information Available Encounters Type Date Location Provider Dx Diagnosis Office Visit 03/05/2019 [facility] Landon López, G93.2 Benign intracranial 11:[facility] hypertension E66.8 Other obesity D35.2 Benign neoplasm of pituitary gland E66.01 Morbid (severe) obesity due to excess calories Assessments Date Code Description Provider 05/10/2019 G93.2 Benign intracranial hypertension Lobo Crowell, N.P. 05/10/2019 E66.8 Other obesity Lobo Crowell, N.P. 05/10/2019 D35.2 Benign neoplasm of pituitary gland Lobo Crowell N.P. 03/05/2019 G93.2 Benign intracranial hypertension Landon López M.D. 03/05/2019 E66.8 Other obesity Landon López M.D. 03/05/2019 D35.2 Benign neoplasm of pituitary gland Landon López M.D. 03/05/2019 E66.01 Morbid (severe) obesity due to excess Landon López M.D. calories Plan of Treatment Future Appointment(s):07/23/2019 12:00 pm - Landon L[facility]pez M.D. at [facility]05/10/2019 - [place].RamoneG93.2 Benign intracranial hypertensionNew Medication:Acetazolamide 250 mg - 1 by mouth twice a day for a week than 1 in am and 2 in pm for a week than 2 in am 2 in pmFollow up:[address] LópezRecommendations:Please see Dr Davies66.8 Other tlacpvxD27.2 Benign neoplasm of pituitary gland Functional Status Description No Information Available Mental Status Description No Information Available Referrals Refer to Reason for Referral Status Appt Date Eloy Jha MD Sent 03/25/[address] [place] [id number] [phone]
[2019-06-19 19:30] LABS: ABS Basophils 0.1 10^3/ul (0-0.2); ABS Lymphocytes 1.3 10^3/ul (1.0-4.8); ABS Monocytes 0.5 10^3/ul (0-0.8); ABS Neutrophils 11.7 10^3/ul (1.5-7.7); Hematocrit 42 % (35-47); Hemoglobin 13.5 g/dL (12.0-16.0); Lymphocyte % 9.8 %; Mean Corpuscular HGB Conc 32 g/dL (31-36); Mean Corpuscular Hemoglobin 24 pg (27-31); Mean Corpuscular Volume 75 fL (80-97); Mean Platelet Volume 9.2 fL (7.4-10.4); Platelet Count 307 10^3/uL (150-450); Red Blood Count 5.62 10^6 /uL (3.70-4.87); Red Cell Distribution Width 19 % (10-15); White Blood Count 13.5 10^3/uL (3.5-10.8)
[2019-06-19 19:35] LABS: INR 1.04 (0.82-1.09)
[2019-06-19 19:47] LABS: ALT 12 U/L (7-52); AST 16 U/L (13-39); Albumin 4.4 g/dL (3.2-5.2); Albumin/Globulin Ratio 1.3 (1-3); Alkaline Phosphatase 71 U/L (34-104); Anion Gap 8 mmol/L (2-11); BUN/Creatinine Ratio 11.8 (8-20); Blood Urea Nitrogen 10 mg/dL (6-24); CO2 Carbon Dioxide 23 mmol/L (22-32); Calcium 9.9 mg/dL (8.6-10.3); Chloride 107 mmol/L (101-111); EGFR African American 96.4 (>60); EGFR Non-African American 79.6 (>60); Globulin 3.3 g/dL (2-4); Glucose 100 mg/dL (70-100); Potassium 4.2 mmol/L (3.5-5.0); Sodium 138 mmol/L (135-145); Total Protein 7.7 g/dL (6.4-8.9)
--- NOTE | 2019-06-19 20:54 | ED ---
HPI Chest Pain - HPI Summary HPI Summary: Pt is a 28 y/o F presenting to the ED with a chief complaint of chest pain initially onset tonight when she was getting ready for bed. The pain began mildly in the R side of her chest, then it worsened throughout the day and was accompanied by nausea, vomiting, shortness of breath, and feeling hot all over her body. She has also felt a flutter in her heart. Notes this happens sometimes when her BP increases. Denies fevers. No hx DVT/PE, ACS/FL or CHF. - History of Current Complaint Chief Complaint: EDChestWallPain Time Seen by Provider: 06/19/19 19:52 Hx Obtained From: Patient Hx Last Menstrual Period: 08/27/17 Onset/Duration: Started Hours Ago, Still Present Timing: Constant, Lasting Hours Initial Severity: Moderate Current Severity: Moderate Pain Intensity: 5 Pain Scale Used: 0-10 Numeric Chest Pain Location: Right Anterior Chest Pain Radiates: No Character: Fluttering Aggravating Factor(s): Nothing Alleviating Factor(s): Nothing Associated Signs and Symptoms: Positive: Chest Pain, Shortness of Breath, Fever , Nausea, Palpitations, Vomiting - Additional Pertinent History Primary Care Physician: [id number] - Allergy/Home Medications Allergies/Adverse Reactions: Allergies Allergy/AdvReac Type Severity Reaction Status Date / Time fluoxetine [From Prozac] Allergy See Comment Verified 06/19/19 19:57 Milk Containing Products Allergy Vomiting Verified 06/19/19 19:57 Home Medications: Home Medications acetaZOLAMIDE TAB* [Diamox TAB*] 750 mg PO BID 06/19/19 [History Confirmed 06/19] cloNIDine TAB* [Catapres 0.1 MG TAB*] 0.1 mg PO BID 06/19/19 [History Confirmed 06/19/19] cloNIDine TAB* [Catapres 0.1 MG TAB*] 0.2 mg PO DAILY 06/19/19 [History Confirmed 06/19/19] tiZANidine TAB* [Zanaflex TAB*] 4 mg PO Q4HR PRN 06/19/19 [History Confirmed 01/30] PMH/Surg Hx/FS Hx/Imm Hx Previously Healthy: Yes Endocrine/Hematology History: Reports: Hx Blood Transfusions, Hx Anemia Denies: Hx Diabetes Cardiovascular History: Reports: Hx Hypertension Denies: Hx Pacemaker/ICD Respiratory History: Reports: Hx Asthma GI History: Reports: Other GI Disorders - morbid obesity s/p gastric bypass surgery History: Reports: Other Problems/Disorders - ACUTE RENAL FAILURE AFTER GASTRIC BYPASS Denies: Hx Renal Disease Sensory History: Reports: Hx Contacts or Glasses Denies: Hx Hearing Aid Opthamlomology History: Reports: Hx Contacts or Glasses Neurological History: Reports: Hx Headaches, Hx Migraine, Other Neuro Impairments/Disorders - PSEUDOTUMOR Denies: Hx Dementia Psychiatric History: Reports: Hx Depression Denies: Hx Panic Disorder - Cancer History Cancer Type, Location and Year: pseudotumor - Surgical History Surgery Procedure, Year, and Place: gastric bypass 2012, [place] Hx Anesthesia Reactions: No - Immunization History Date of Tetanus Vaccine: unk Date of Influenza Vaccine: fall 2018 Infectious Disease History: No Infectious Disease History: Denies: Hx Clostridium Difficile, Hx Hepatitis, Hx Human Immunodeficiency Virus (HIV), Hx of Known/Suspected MRSA, Hx Shingles, Hx Tuberculosis, Hx Known/ Suspected VRE, Hx Known/Suspected VRSA, History Other Infectious Disease, Traveled Outside the [place] in Last 30 Days - Family History Known Family History: Positive: Hypertension - Social History Alcohol Use: None Hx Substance Use: No Substance Use Type: Reports: None Hx Tobacco Use: No Smoking Status (MU): Never Smoked Tobacco Review of Systems Positive: Fever Positive: Palpitations, Chest Pain Positive: Shortness Of Breath Positive: Vomiting, Nausea All Other Systems Reviewed And Are Negative: Yes Physical Exam - Summary Physical Exam Summary: Constitutional: Obese, Alert. (-) Distressed Skin: Warm, Dry HENT: Normocephalic; Atraumatic Eyes: Conjunctiva normal Neck: Musculoskeletal ROM normal neck. (-) JVD, (-) Stridor, (-) Nuchal rigidity Cardio: Rhythm regular, rate normal, Heart sounds normal; Intact distal pulses; Radial pulses are 2+ and symmetric. (-) Murmur Pulmonary/Chest wall: Effort normal. (-) Respiratory distress, (-) Wheezes, (-) Rales Abd: Soft, (-) tenderness, (-) Distension, (-) Guarding, (-) Rebound Musculoskeletal: (-) Edema Lymph: (-) Cervical adenopathy Neuro: Alert, Oriented x3 Psych: Mood and affect Normal Triage Information Reviewed: Yes Vital Signs On Initial Exam: Initial Vitals Temp Pulse Resp BP Pulse Ox 97.0 F 76 16 203/124 100 06/19/19 18:05 06/19/19 18:05 06/19/19 18:05 06/19/19 18:05 06/19/19 18:05 Vital Signs Reviewed: Yes Procedures - Sedation Patient Received Moderate/Deep Sedation with Procedure: No Diagnostics - Vital Signs Vital Signs Temp Pulse Resp BP Pulse Ox 06/19/19 18:05 97.0 F 76 16 203/124 100 - Laboratory Lab Results: Lab Results 06/19/19 06/19/19 06/19/19 Range/Units 19:22 19:22 19:22 WBC 13.5 H (3.5-10.8) 10^3/uL RBC 5.62 H (3.70-4.87) 10^6 /uL Hgb 13.5 (12.0-16.0) g/dL Hct 42 (35-47) % MCV 75 L (80-97) fL MCH 24 L (27-31) pg MCHC 32 (31-36) g/dL RDW 19 H (10-15) % Plt Count 307 (150-450) 10^3/uL MPV 9.2 (7.4-10.4) fL Neut % (Auto) 86.4 % Lymph % (Auto) 9.8 % [place] % (Auto) 3.4 % Eos % (Auto) 0.0 % Baso % (Auto) 0.4 % Absolute Neuts (auto) 11.7 H (1.5-7.7) 10^3/ul Absolute Lymphs (auto) 1.3 (1.0-4.8) 10^3/ul Absolute Monos (auto) 0.5 (0-0.8) 10^3/ul Absolute Eos (auto) 0.0 (0-0.6) 10^3/ul Absolute Basos (auto) 0.1 (0-0.2) 10^3/ul Absolute Nucleated RBC 0.0 10^3/ul Nucleated RBC % 0.0 INR (Anticoag Therapy) 1.04 (0.82-1.09) Sodium 138 (135-145) mmol/L Potassium 4.2 (3.5-5.0) mmol/L Chloride 107 (101-111) mmol/L Carbon Dioxide 23 (22-32) mmol/L Anion Gap 8 (2-11) mmol/L BUN 10 (6-24) mg/dL Creatinine 0.85 (0.51-0.95) mg/dL Est GFR ( Amer) 96.4 (>60) Est GFR (Non-Af Amer) 79.6 (>60) BUN/Creatinine Ratio 11.8 (8-20) Glucose 100 (70-100) mg/dL Calcium 9.9 (8.6-10.3) mg/dL Total Bilirubin 0.30 (0.2-1.0) mg/dL AST 16 (13-39) U/L ALT 12 (7-52) U/L Alkaline Phosphatase 71 (34-104) U/L Troponin I 0.00 (<0.04) ng/mL Total Protein 7.7 (6.4-8.9) g/dL Albumin 4.4 (3.2-5.2) g/dL Globulin 3.3 (2-4) g/dL Albumin/Globulin Ratio 1.3 (1-3) Beta HCG, Quant mIU/mL 06/19/19 Range/Units 19:22 WBC (3.5-10.8) 10^3/uL RBC (3.70-4.87) 10^6 /uL Hgb (12.0-16.0) g/dL Hct (35-47) % MCV (80-97) fL MCH (27-31) pg MCHC (31-36) g/dL RDW (10-15) % Plt Count (150-450) 10^3/uL MPV (7.4-10.4) fL Neut % (Auto) % Lymph % (Auto) % [place] % (Auto) % Eos % (Auto) % Baso % (Auto) % Absolute Neuts (auto) (1.5-7.7) 10^3/ul Absolute Lymphs (auto) (1.0-4.8) 10^3/ul Absolute Monos (auto) (0-0.8) 10^3/ul Absolute Eos (auto) (0-0.6) 10^3/ul Absolute Basos (auto) (0-0.2) 10^3/ul Absolute Nucleated RBC 10^3/ul Nucleated RBC % INR (Anticoag Therapy) (0.82-1.09) Sodium (135-145) mmol/L Potassium (3.5-5.0) mmol/L Chloride (101-111) mmol/L Carbon Dioxide (22-32) mmol/L Anion Gap (2-11) mmol/L BUN (6-24) mg/dL Creatinine (0.51-0.95) mg/dL Est GFR ( Amer) (>60) Est GFR (Non-Af Amer) (>60) BUN/Creatinine Ratio (8-20) Glucose (70-100) mg/dL Calcium (8.6-10.3) mg/dL Total Bilirubin (0.2-1.0) mg/dL AST (13-39) U/L ALT (7-52) U/L Alkaline Phosphatase (34-104) U/L Troponin I (<0.04) ng/mL Total Protein (6.4-8.9) g/dL Albumin (3.2-5.2) g/dL Globulin (2-4) g/dL Albumin/Globulin Ratio (1-3) Beta HCG, Quant < 0.60 mIU/mL Result Diagrams: 06/19/19 19:22 06/19/19 19:22 Lab Statement: Any lab studies that have been ordered have been reviewed, and results considered in the medical decision making process. - Radiology CXR Radiology Interpretation Completed By: ED Physician Summary of Radiographic Findings: No acute process. Pending official radiology report. - EKG 2100 Cardiac Rate: NL - 78bpm EKG Rhythm: Sinus Rhythm ST Segment: Normal Ectopy: None Summary of EKG Findings: An EKG at 2100 reveals NSR at 78bpm, nml axis, nml intervals. No STEMI. No acute changes. ED physician has reviewed and interpreted this EKG. Re-Evaluation - Re-Evaluation First Eval Re-Evaluation Time: 20:15 Change: Improved Comment: 2nd troponin was negative, chest x-ray without evidence of pneumonia. she feels much improved after home dose of clonidine and motrin. BP 150's systolic. Plan for outpatient follow-up with PCP. Chest Pain Course/Dx - Course Course Of Treatment: 28 year-old female with a history of pseudotumor cerebri and hypertension presents with chest pain. Chest Pain DDX: The patient is well appearing, with stable vitals. Given the patient's clinical presentation, highest on differential is atypical CP/pleurisy. Although less likely, differential also includes the following: --Pneumothorax: Equal breath sounds, story inconsistent since gradual onset of symptoms. CXR shows no evidence of pneumothorax. Unlikely. --Cardiac tamponade: The history and physical are not concerning for tamponade. No Pulsus Paradoxus, no tachypnea. Unlikely. -- Mediastinitis or esophageal rupture: The history is not consistent, as the patient has had no recent history of significant wretching, instrumentation, or mediastinal surgeries. Unlikely. --Aortic dissection: The patient does not describe the classical tearing chest pain radiating into the back, and the CXR does not show mediastinal widening or other signs of aortic dissection. Unlikely. --PE: Vitals wnl (not hypoxic, tachycardic or tachypneic). PERC neg. --ACS: The initial EKG shows no ischemic changes. The initial troponin is not elevated. Blood pressure initially elevated, given home dose of clonidine. Cr normal. Heart score - HEART Score. Based on a HEART score of 1 the patient has a low risk (<2% chance) of major adverse cardiac event within the next 6 weeks. I explained to the patient that based on the work-up today, her risk of heart attack is low and that he/she will be discharged with outpatient follow- up. Strict return precautions were discussed regarding worsening chest pain, new / atypical pain, shortness of breath, or any other serious concerns. Patient endorsed understanding and has no questions at this time. - Diagnoses Provider Diagnoses: Chest pain Discharge ED - Sign-Out/Discharge Documenting (check all that apply): Sign-Out Patient Signing out patient TO: Tc Purdy - Discharge Plan Condition: Stable Disposition: HOME Patient Education Materials: Chest Pain (ED) Referrals: Bella Keating NP [Primary Care Provider] - Additional Instructions: You were seen in the emergency department for chest pain. Your EKG (heart tracing), labs and chest x-ray did not show any cause for pain. Important that you follow up with you primary care doctor in the next 1-2 days to help schedule an outpatient stress test if warranted. Please return to the emergency department for continued chest pain, trouble breathing, passing out, or if you're concerned. - Billing Disposition and Condition Condition: STABLE Disposition: Home - Attestation Statements Document Initiated by Joanibe: Yes Documenting Scribe: Maru Jasmine Provider For Whom Jian is Documenting (Include Credential): Jung Piña MD. Scribe Attestation: Maru Mae, scribed for Jung Piña MD. on 06/19/19 at 2224. Scribe Documentation Reviewed: Yes Provider Attestation: The documentation as recorded by the scribe, Maru Jasmine accurately reflects the service I personally performed and the decisions made by , Jung Piña MD. Status of Scribe Document: Viewed
[2019-06-19] MEDS ORDERED: cloNIDine TAB* 0.1 MG PO ONE (21:20)
[2019-06-19] MEDS ORDERED: Ibuprofen TAB* 600 MG PO ONE (21:20)
[2019-06-19 22:46] VITALS: BP 152/80
== END 2019-06-19 23:07 | disposition home or self-care (01) ==
LOC: ED 18:01
DX: R07.9 Chest pain, unspecified (principal); I10 Essential (primary) hypertension; D64.9 Anemia, unspecified; Z79.899 Other long term (current) drug therapy; Z88.8 Allergy status to other drugs, medicaments and biological substances; Z98.84 Bariatric surgery status
CPT/HCPCS: 36415; 71045; 80053; 84484; 84702; 85025; 85610; 93005; 99283; A9270-GY